=== PATIENT | male | born 1955 | race Caucasian/White ===

== ENCOUNTER 2021-12-28 09:58 | Inpatient (IN) ==
[2021-12-28] MEDS ORDERED: Ipratropium/Albuterol Neb 3 ML IH ONE (10:17)
[2021-12-28] MEDS ORDERED: methylPREDNISolone 125 MG/2 ML VIAL IVP ONE (10:17)
[2021-12-28 10:43] LABS: Basophils # 0.1 K/mcL (0.0-0.2); Basophils % 0.5 %; Eosinophils # 0.1 K/mcL (0.0-0.6); Eosinophils % 0.9 %; Hematocrit 30.7 % (37.5-50.1); Hemoglobin 10.4 g/dL (12.9-16.9); Immature Granulocytes % 0.7 % (0-4); Lymphocytes # 0.7 K/mcL (0.6-4.6); Lymphocytes % 5.2 %; Mean Corpuscular HGB Conc 33.9 g/dL (31.6-35.5); Mean Corpuscular Hemoglobin 28.3 pg (28.0-33.3); Mean Corpuscular Volume 83.4 fL (83.0-100.0); Mean Platelet Volume 8.5 fL (9.4-12.4); Monocytes % 9.7 %; Neutrophils # 10.6 K/mcL (1.6-8.9); Platelet Count 281 K/mcL (140-400); Red Blood Count 3.68 M/mcL (4.19-5.50); Red Cell Distribution Width 14.3 % (11.5-14.5); White Blood Count 12.8 K/mcL (4.3-11.1)
[2021-12-28 10:45] LABS: Monocytes # 1.2 K/mcL (0.0-1.3)
[2021-12-28 10:48] LABS: INR 1.8; Prothrombin Time 20.3 Seconds (9.4-12.1)
[2021-12-28] MEDS ORDERED: Azithromycin 500 MG in 0.9 % Sodium Chloride 250 ML IVPB ONE (11:04)
[2021-12-28] MEDS ORDERED: cefTRIAXone 1,000 MG in 0.9 % Sodium Chloride Mini Bag 100 ML IVPB ONE (11:04)
[2021-12-28 11:08] LABS: Albumin 3.6 g/dL (3.5-5.7); Albumin/Globulin Ratio 1.2 (1.1-2.2); Bilirubin,Direct 0.2 mg/dL (0.0-0.2); Bilirubin,Indirect 0.2 mg/dL (0.0-1.0); Bilirubin,Total 0.4 mg/dL (0.3-1.0); Calcium 8.5 mg/dL (8.6-10.3); Globulin 2.9 g/dL (2.4-3.5); Potassium 4.3 mEq/L (3.5-5.1); Total Protein 6.5 g/dL (6.4-8.9)
[2021-12-28 11:19] LABS: Troponin I 0.05 ng/mL (< 0.04)
[2021-12-28] MEDS ORDERED: 0.9 % Sodium Chloride 1,000 ML IVC ONE (11:43)
[2021-12-28] MEDS ORDERED: Ondansetron ODT 4 MG TAB.RAPDIS SL PRN (13:15)
[2021-12-28] MEDS ORDERED: Ondansetron 4 MG/2 ML VIAL IVP PRN ×2 (13:16→13:36)
[2021-12-28] MEDS ORDERED: Naloxone 0.4 MG/ML INJ IVP PRN ×2 (13:16→13:36)
[2021-12-28] MEDS ORDERED: 0.9 % Sodium Chloride 1,000 ML IVC SCH (13:30)
[2021-12-28] MEDS: clonazePAM 0.5 MG TABLET PO PRN ×2 (14:21→21:44)
[2021-12-28] MEDS: 0.9 % Sodium Chloride 1,000 ML IVC SCH (14:23)
[2021-12-28] MEDS: Furosemide 20 MG TABLET PO SCH (14:25)
[2021-12-28] MEDS: Nicotine 14 MG PATCH.TD24 TD SCH (14:33)
[2021-12-28] MEDS ORDERED: Ipratropium/Albuterol Neb 3 ML IH SCH (16:00)
[2021-12-28] MEDS: Ipratropium/Albuterol Neb 3 ML IH SCH ×3 (17:54→23:08)
[2021-12-28] MEDS: Budesonide/Formoterol 80/4.5 1 PUFF INH IH SCH ×2 (17:54→19:59)
[2021-12-28] MEDS ORDERED: *HR* Heparin 5,000 UNIT/ML VIAL SQ SCH ×2 (18:00)
[2021-12-28 21:04] LABS: Adenovirus Not Detected (Not Detect); Bordetella Pertussis Not Detected (Not Detect); Chlamydophila pneumoniae Not Detected (Not Detect); Coronavirus 229E Not Detected (Not Detect); Coronavirus HKU1 Not Detected (Not Detect); Coronavirus NL63 Not Detected (Not Detect); Coronavirus OC43 Not Detected (Not Detect); Human Metapneumovirus Not Detected (Not Detect); Human Rhinovirus/Enterovirus Not Detected (Not Detect); Influenza A Subtype 2009 H1 Not Detected (Not Detect); Influenza B Not Detected (Not Detect); Mycoplasma pneumoniae Not Detected (Not Detect); Parainfluenza Virus 1 Not Detected (Not Detect); Parainfluenza Virus 2 Not Detected (Not Detect); Parainfluenza Virus 3 Not Detected (Not Detect); Parainfluenza Virus 4 Not Detected (Not Detect); Respiratory Syncytial Virus Not Detected (Not Detect); SARS-CoV-2 Not Detected (Not Detect)
[2021-12-28] MEDS: Melatonin 3 MG TABLET PO SCH (21:42)
[2021-12-28] MEDS: Apixaban 5 MG TABLET PO SCH (21:42)
[2021-12-29] MEDS: 0.9 % Sodium Chloride 1,000 ML IVC SCH ×2 (00:31→08:27)
[2021-12-29] MEDS: Ipratropium/Albuterol Neb 3 ML IH SCH ×6 (03:55→23:06)
[2021-12-29] MEDS: Apixaban 5 MG TABLET PO SCH ×2 (08:02→20:37)
[2021-12-29] MEDS: Nicotine 14 MG PATCH.TD24 TD SCH (08:02)
[2021-12-29] MEDS: Furosemide 20 MG TABLET PO SCH (08:02)
[2021-12-29] MEDS: Budesonide/Formoterol 80/4.5 1 PUFF INH IH SCH ×2 (08:06→19:55)
[2021-12-29 08:56] LABS: Hematocrit 28.5 % (37.5-50.1); Hemoglobin 9.3 g/dL (12.9-16.9); Mean Corpuscular HGB Conc 32.6 g/dL (31.6-35.5); Mean Corpuscular Hemoglobin 27.7 pg (28.0-33.3); Mean Corpuscular Volume 84.8 fL (83.0-100.0); Mean Platelet Volume 8.4 fL (9.4-12.4); Platelet Count 233 K/mcL (140-400); Red Blood Count 3.36 M/mcL (4.19-5.50); Red Cell Distribution Width 14.3 % (11.5-14.5); White Blood Count 16.6 K/mcL (4.3-11.1)
[2021-12-29] MEDS ORDERED: Azithromycin 500 MG in 0.9 % Sodium Chloride 250 ML IVPB SCH (09:00)
[2021-12-29] MEDS ORDERED: cefTRIAXone 1,000 MG in 0.9 % Sodium Chloride 10 ML IVP SCH (09:00)
[2021-12-29 09:07] LABS: Calcium 8.3 mg/dL (8.6-10.3); Chol/HDL Ratio 2.7 (0-4.9); Magnesium 1.9 mg/dL (1.6-2.6); Potassium 4.8 mEq/L (3.5-5.1)
[2021-12-29] MEDS: clonazePAM 0.5 MG TABLET PO PRN ×2 (10:46→20:38)
[2021-12-29] MEDS: Azithromycin 500 MG in 0.9 % Sodium Chloride 250 ML IVPB SCH (10:46)
[2021-12-29] MEDS: cefTRIAXone 1,000 MG in 0.9 % Sodium Chloride 10 ML IVP SCH (10:47)
[2021-12-29] MEDS ORDERED: MethylPREDNISolone 40 MG/ML VIAL IVP SCH (11:57)
[2021-12-29] MEDS: Acetaminophen 325 MG TABLET PO PRN (16:30)
[2021-12-29] MEDS: Melatonin 3 MG TABLET PO SCH (20:37)
[2021-12-29] MEDS: MethylPREDNISolone 40 MG/ML VIAL IVP SCH (22:29)
[2021-12-30] MEDS: Ipratropium/Albuterol Neb 3 ML IH SCH ×3 (03:40→11:50)
[2021-12-30] MEDS: MethylPREDNISolone 40 MG/ML VIAL IVP SCH ×2 (05:21→13:37)
[2021-12-30] MEDS: Budesonide/Formoterol 80/4.5 1 PUFF INH IH SCH ×2 (07:56→20:09)
[2021-12-30] MEDS: clonazePAM 0.5 MG TABLET PO PRN ×3 (09:30→20:27)
[2021-12-30] MEDS: Apixaban 5 MG TABLET PO SCH ×2 (09:30→20:27)
[2021-12-30] MEDS: cefTRIAXone 1,000 MG in 0.9 % Sodium Chloride 10 ML IVP SCH (09:31)
[2021-12-30] MEDS: Nicotine 14 MG PATCH.TD24 TD SCH (09:31)
[2021-12-30] MEDS: Azithromycin 500 MG in 0.9 % Sodium Chloride 250 ML IVPB SCH (09:32)
[2021-12-30 09:48] LABS: Basophils % 0.1 %; Hematocrit 34.4 % (37.5-50.1); Hemoglobin 11.2 g/dL (12.9-16.9); Immature Granulocytes % 0.5 % (0-4); Lymphocytes # 0.3 K/mcL (0.6-4.6); Lymphocytes % 2.3 %; Mean Corpuscular HGB Conc 32.6 g/dL (31.6-35.5); Mean Corpuscular Hemoglobin 27.8 pg (28.0-33.3); Mean Corpuscular Volume 85.4 fL (83.0-100.0); Mean Platelet Volume 8.6 fL (9.4-12.4); Monocytes # 0.5 K/mcL (0.0-1.3); Monocytes % 3.8 %; Platelet Count 266 K/mcL (140-400); Red Blood Count 4.03 M/mcL (4.19-5.50); Red Cell Distribution Width 14.5 % (11.5-14.5); Segmented Neutrophils % 93.3 %; White Blood Count 13.3 K/mcL (4.3-11.1)
[2021-12-30 09:53] LABS: Neutrophils # 12.4 K/mcL (1.6-8.9)
[2021-12-30 09:58] LABS: Alanine Aminotransferase 11 Units/L (7-52); Albumin 3.6 g/dL (3.5-5.7); Albumin/Globulin Ratio 1.2 (1.1-2.2); Alkaline Phosphatase 81 Units/L (34-104); Aspartate Amino Transferase 10 Units/L (13-39); BUN/Creatinine Ratio 16 (6-26); Bilirubin,Total 0.3 mg/dL (0.3-1.0); Blood Urea Nitrogen 22 mg/dL (8-23); Carbon Dioxide 27 mEq/L (23-29); Chloride 96 mEq/L (98-107); Glucose 224 mg/dL (70-105); Magnesium 1.7 mg/dL (1.6-2.6); Osmolality,Calculated 282 (280-300); Potassium 4.6 mEq/L (3.5-5.1); Sodium 131 mEq/L (136-145); Total Protein 6.6 g/dL (6.4-8.9); eGFR For African Americans > 60 (> 60); eGFR For Non-African Americans 52 (> 60)
[2021-12-30] MEDS: Furosemide 20 MG TABLET PO SCH (10:15)
[2021-12-30] MEDS: 0.9 % Sodium Chloride 1,000 ML IVC SCH ×2 (11:22→22:51)
[2021-12-30] MEDS ORDERED: Iopamidol - 370 500 ML MLS IVP ONE (13:16)
[2021-12-30 13:52] LABS: Bilirubin,Urine Negative (Negative); Blood,Urine Negative (Negative); Clarity,Urine Clear (Clear); Color,Urine Yellow (Yellow); Glucose,Urine (UA) 100 mg/dL (Normal); Ketones,Urine Negative (Negative); Leukocyte Esterase,Urine Negative (Negative); Nitrite,Urine Negative (Negative); Protein,Urine Trace mg/dL (Neg-Trace); Urobilinogen,Urine Normal (Normal)
[2021-12-30 14:02] LABS: Squamous Epithelial Cell,Urine Few per hpf (None-Few); WBC,Urine 0-3 per hpf (0-3)
[2021-12-30] MEDS ORDERED: Ipratropium/Albuterol Neb 3 ML IH PRN (15:05)
[2021-12-30] MEDS: Melatonin 3 MG TABLET PO SCH (20:26)
[2021-12-31] MEDS ORDERED: CefTRIAXone 1,000 MG VIAL ONE (07:48)
[2021-12-31] MEDS: Apixaban 5 MG TABLET PO SCH ×2 (07:54→21:06)
[2021-12-31] MEDS: Furosemide 20 MG TABLET PO SCH (07:54)
[2021-12-31] MEDS: 0.9 % Sodium Chloride 1,000 ML IVC SCH (07:55)
[2021-12-31] MEDS: Azithromycin 500 MG in 0.9 % Sodium Chloride 250 ML IVPB SCH (07:55)
[2021-12-31] MEDS: cefTRIAXone 1,000 MG in 0.9 % Sodium Chloride 10 ML IVP SCH (07:56)
[2021-12-31] MEDS: Nicotine 14 MG PATCH.TD24 TD SCH (08:08)
[2021-12-31] MEDS: clonazePAM 0.5 MG TABLET PO PRN ×2 (08:08→17:34)
[2021-12-31] MEDS: Budesonide/Formoterol 80/4.5 1 PUFF INH IH SCH ×2 (11:38→20:36)
[2021-12-31] MEDS: *HR* Methadone 5 MG TABLET PO SCH ×2 (13:07→17:28)
[2021-12-31] MEDS: Acetaminophen 325 MG TABLET PO PRN (18:58)
[2021-12-31] MEDS: MethylPREDNISolone 40 MG/ML VIAL IVP SCH (21:06)
[2021-12-31] MEDS: Melatonin 3 MG TABLET PO SCH (21:06)
[2021-12-31] MEDS: hydrOXYzine pamoate 25 MG CAPSULE PO PRN (21:06)
[2021-12-31] MEDS ORDERED: MethylPREDNISolone 40 MG/ML VIAL IVP SCH (22:00)
[2021-12-31] MEDS ORDERED: 0.9 % Sodium Chloride 500 ML IVC ONE (22:30)
[2022-01-01] MEDS: clonazePAM 0.5 MG TABLET PO PRN ×4 (00:39→20:46)
[2022-01-01] MEDS: MethylPREDNISolone 40 MG/ML VIAL IVP SCH ×5 (05:07→20:47)
[2022-01-01 05:08] LABS: Basophils % 0.3 %; Eosinophils % 0.1 %; Hematocrit 35.5 % (37.5-50.1); Hemoglobin 11.7 g/dL (12.9-16.9); Lymphocytes # 0.5 K/mcL (0.6-4.6); Lymphocytes % 4.6 %; Mean Corpuscular Hemoglobin 27.6 pg (28.0-33.3); Mean Corpuscular Volume 83.7 fL (83.0-100.0); Mean Platelet Volume 8.6 fL (9.4-12.4); Monocytes # 0.3 K/mcL (0.0-1.3); Monocytes % 2.9 %; Neutrophils # 9.6 K/mcL (1.6-8.9); Platelet Count 278 K/mcL (140-400); Red Blood Count 4.24 M/mcL (4.19-5.50); Red Cell Distribution Width 14.8 % (11.5-14.5); Segmented Neutrophils % 90.1 %; White Blood Count 10.7 K/mcL (4.3-11.1)
[2022-01-01 05:24] LABS: BUN/Creatinine Ratio 24 (6-26); Blood Urea Nitrogen 32 mg/dL (8-23); Calcium 9.7 mg/dL (8.6-10.3); Carbon Dioxide 29 mEq/L (23-29); Chloride 97 mEq/L (98-107); Glucose 163 mg/dL (70-105); Magnesium 2.2 mg/dL (1.6-2.6); Osmolality,Calculated 286 (280-300); Sodium 133 mEq/L (136-145); eGFR For African Americans > 60 (> 60); eGFR For Non-African Americans 52 (> 60)
[2022-01-01] MEDS: *HR* Methadone 5 MG TABLET PO SCH ×2 (05:27→13:08)
[2022-01-01] MEDS: Budesonide/Formoterol 80/4.5 1 PUFF INH IH SCH ×2 (07:43→21:51)
[2022-01-01] MEDS: Azithromycin 500 MG in 0.9 % Sodium Chloride 250 ML IVPB SCH (08:23)
[2022-01-01] MEDS: Apixaban 5 MG TABLET PO SCH ×2 (08:23→20:47)
[2022-01-01] MEDS: Furosemide 20 MG TABLET PO SCH (08:23)
[2022-01-01] MEDS: cefTRIAXone 1,000 MG in 0.9 % Sodium Chloride 10 ML IVP SCH (08:24)
[2022-01-01] MEDS: Nicotine 14 MG PATCH.TD24 TD SCH (08:36)
[2022-01-01] MEDS ORDERED: Levalbuterol Neb 1.25 MG/3 ML IH PRN (09:47)
[2022-01-01] MEDS ORDERED: *HR* Methadone 5 MG TABLET PO ONE (09:51)
[2022-01-01] MEDS ORDERED: *HR* Methadone 5 MG TABLET PO SCH (18:00)
[2022-01-01] MEDS: Melatonin 3 MG TABLET PO SCH (20:46)
[2022-01-01] MEDS: hydrOXYzine pamoate 25 MG CAPSULE PO PRN (20:47)
[2022-01-02] MEDS: MethylPREDNISolone 40 MG/ML VIAL IVP SCH ×4 (04:36→21:13)
[2022-01-02] MEDS: Levalbuterol 1 PUFF INHALER IH PRN ×3 (07:43→21:16)
[2022-01-02] MEDS: Budesonide/Formoterol 80/4.5 1 PUFF INH IH SCH ×2 (07:43→21:17)
[2022-01-02] MEDS: Nicotine 14 MG PATCH.TD24 TD SCH (08:31)
[2022-01-02] MEDS: *HR* Methadone 5 MG TABLET PO SCH (08:33)
[2022-01-02] MEDS: Apixaban 5 MG TABLET PO SCH ×2 (08:34→21:14)
[2022-01-02] MEDS: Furosemide 20 MG TABLET PO SCH (08:35)
[2022-01-02] MEDS: Azithromycin 500 MG in 0.9 % Sodium Chloride 250 ML IVPB SCH (08:35)
[2022-01-02] MEDS: cefTRIAXone 1,000 MG in 0.9 % Sodium Chloride 10 ML IVP SCH (08:35)
[2022-01-02] MEDS: clonazePAM 0.5 MG TABLET PO PRN ×2 (08:57→17:09)
[2022-01-02] MEDS ORDERED: *HR* Methadone 5 MG TABLET PO ONE (11:15)
[2022-01-02] MEDS: Megestrol Acetate 400 MG/10 ML UDC PO SCH (11:38)
[2022-01-02] MEDS: Acetaminophen 325 MG TABLET PO PRN (17:14)
[2022-01-02] MEDS: hydrOXYzine pamoate 25 MG CAPSULE PO PRN (21:14)
[2022-01-02] MEDS: Melatonin 3 MG TABLET PO SCH (21:14)
[2022-01-03] MEDS: clonazePAM 0.5 MG TABLET PO PRN ×2 (01:13→06:43)
[2022-01-03] MEDS: Acetaminophen 325 MG TABLET PO PRN (06:44)
[2022-01-03] MEDS: hydrOXYzine pamoate 25 MG CAPSULE PO PRN (06:44)
[2022-01-03 06:54] LABS: Basophils # 0.1 K/mcL (0.0-0.2); Basophils % 0.8 %; Eosinophils % 0.1 %; Hemoglobin 13.5 g/dL (12.9-16.9); Immature Granulocytes % 5.4 % (0-4); Lymphocytes # 1.2 K/mcL (0.6-4.6); Mean Corpuscular HGB Conc 32.9 g/dL (31.6-35.5); Mean Corpuscular Hemoglobin 27.6 pg (28.0-33.3); Mean Corpuscular Volume 83.7 fL (83.0-100.0); Mean Platelet Volume 8.8 fL (9.4-12.4); Monocytes # 1.3 K/mcL (0.0-1.3); Monocytes % 7.2 %; Platelet Count 368 K/mcL (140-400); Red Cell Distribution Width 14.4 % (11.5-14.5); Segmented Neutrophils % 79.5 %; White Blood Count 17.7 K/mcL (4.3-11.1)
[2022-01-03 06:56] LABS: Neutrophils # 14.1 K/mcL (1.6-8.9)
[2022-01-03 07:17] LABS: BUN/Creatinine Ratio 38 (6-26); Blood Urea Nitrogen 54 mg/dL (8-23); Calcium 9.7 mg/dL (8.6-10.3); Carbon Dioxide 27 mEq/L (23-29); Chloride 96 mEq/L (98-107); Glucose 145 mg/dL (70-105); Osmolality,Calculated 291 (280-300); Potassium 4.9 mEq/L (3.5-5.1); Sodium 132 mEq/L (136-145); eGFR For African Americans > 60 (> 60); eGFR For Non-African Americans 50 (> 60)
[2022-01-03] MEDS: Levalbuterol 1 PUFF INHALER IH PRN (07:52)
[2022-01-03] MEDS: Budesonide/Formoterol 80/4.5 1 PUFF INH IH SCH (07:52)
[2022-01-03 07:53] VITALS: O2SAT 94
[2022-01-03] MEDS ORDERED: Methadone Oral Concentrate 50 MG/5 ML UDC PO SCH (09:00)
[2022-01-03] MEDS: Nicotine 14 MG PATCH.TD24 TD SCH (09:09)
[2022-01-03] MEDS: Megestrol Acetate 400 MG/10 ML UDC PO SCH (09:09)
[2022-01-03] MEDS: Furosemide 20 MG TABLET PO SCH (09:10)
[2022-01-03] MEDS: Apixaban 5 MG TABLET PO SCH (09:11)
[2022-01-03] MEDS: MethylPREDNISolone 40 MG/ML VIAL IVP SCH (09:50)
[2022-01-03 13:09] VITALS: BP 118/77; PULSE 83; RESP 19; TEMP 98
== END 2022-01-03 14:25 | disposition home or self-care (01) | DRG 193 ==
LOC: EMEROOGRE 09:58 → INPGRE 09:58
PROVIDERS: ADMIT Family Medicine; ATTEND Family Medicine